=== PATIENT | male | born 1995 | race African-American/Black ===

== ENCOUNTER 2021-08-17 11:25 | Emergency (ER) | payer OTHER ==
[2021-08-17 11:55] VITALS: BP 142/73; PULSE 78; TEMP 98.1; BMI 23.7
[2021-08-17] MEDS ORDERED: METOCLOPRAMIDE HCL INJECTION 10 MG/2 ML VIAL IVPB ONE (12:41)
[2021-08-17] MEDS ORDERED: ACETAMINOPHEN 1000 MG/100 ML VIAL IVPB ONE (12:41)
[2021-08-17] MEDS ORDERED: SODIUM CHLORIDE 1,000 ML IV STA ×2 (12:41→18:29)
[2021-08-17] MEDS ORDERED: MAG HYDROX/AL HYDROX/SIMETH 30 ML UNIT-DOSE CUP PO ONE (12:42)
[2021-08-17] MEDS ORDERED: ACETAMINOPHEN INJECTION 100 ML IVPB ONE (13:19)
[2021-08-17] MEDS ORDERED: METOCLOPRAMIDE HCL INJECTION 10 MG/2 ML VIAL ONE (13:19)
[2021-08-17] MEDS ORDERED: MAG HYDROX/AL HYDROX/SIMETH 30 ML UNIT-DOSE CUP ONE (13:20)
[2021-08-17] MEDS ORDERED: LORazepam 2 MG/ML SDV VIAL IVPUSH ONE (14:23)
[2021-08-17 14:26] LABS: BASO % 0.3 % (0-2.0); HEMATOCRIT 46.3 % (35.4-49); HEMOGLOBIN 15.6 GM/dL (11.7-16.9); LYMPH % 7.4 % (8-40); MCH 26.8 pg (25.7-33.7); MCHC 33.8 g/dl (32.0-35.9); MEAN CELL VOLUME 79.4 fl (80-96); MEAN PLT VOLUME 8.8 fl (7.5-11.1); MONO % 5.5 % (3.8-10.2); NEUT % 86.8 % (42.8-82.8); PLATELET COUNT 298 10^3/uL (134-434); RBC 5.84 M/mm3 (4.00-5.60); RDW 13.5 % (11.9-15.9); WHITE BLOOD COUNT 18.5 K/mm3 (4.0-10.0)
[2021-08-17 14:33] LABS: INR 1.12 (0.83-1.09); PROTHROMBIN TIME (PATIENT) 13.1 SEC (9.7-13.0)
[2021-08-17] MEDS ORDERED: LORazepam 2 MG/ML SDV VIAL ONE (14:41)
[2021-08-17 14:45] LABS: CHLORIDE 108 mmol/L (98-107); SODIUM 140 mmol/L (136-145)
[2021-08-17 14:47] LABS: CALCIUM 9.6 mg/dL (8.5-10.1)
[2021-08-17 14:48] LABS: ALBUMIN 4.4 g/dl (3.4-5.0); ANION GAP 15 MMOL/L (8-16); BLOOD UREA NITROGEN 9.5 mg/dL (7-18); CO2 17 mmol/L (21-32); GLUCOSE,RANDOM 110 mg/dL (74-106); LIPASE 45 U/L (73-393)
[2021-08-17 14:51] LABS: CREATININE 1.3 mg/dL (0.55-1.3); SGOT/AST 29 U/L (15-37); SGPT/ALT 45 U/L (13-61)
[2021-08-17 14:52] LABS: BILIRUBIN,TOTAL 0.3 mg/dL (0.2-1); TOT PROT 8.4 g/dl (6.4-8.2)
[2021-08-17 14:53] LABS: ALK PHOS 84 U/L (45-117)
[2021-08-17] MEDS ORDERED: LIDOCAINE VISCOUS 2% ORAL/TOP 15 ML UNIT-DOSE CUP MM ONE (17:33)
[2021-08-17] MEDS ORDERED: KETOROLAC TROMETHAMINE 60 MG/2 ML VIAL IVPUSH ONE (17:43)
[2021-08-17] MEDS ORDERED: KETOROLAC TROMETHAMINE 15 MG/ML VIAL ONE (18:20)
[2021-08-17] MEDS ORDERED: LIDOCAINE VISCOUS 2% ORAL/TOP 15 ML UNIT-DOSE CUP ONE (18:20)
[2021-08-17] MEDS ORDERED: ONDANSETRON 4 MG/2 ML VIAL IVPUSH ONE (18:28)
[2021-08-17] MEDS ORDERED: ONDANSETRON 4 MG/2 ML VIAL ONE (19:14)
== END 2021-08-17 21:03 | disposition home or self-care (01) ==
LOC: JER 11:25
PROC: 3E0333Z Introduction of Anti-inflammatory into Peripheral Vein, Percutaneous Approach (ICD-10-PCS; principal; 2021-08-17)
PROC: 3E0333Z Introduction of Anti-inflammatory into Peripheral Vein, Percutaneous Approach (ICD-10-PCS; 2021-08-17)
PROC: 3E033GC Introduction of Other Therapeutic Substance into Peripheral Vein, Percutaneous Approach (ICD-10-PCS; 2021-08-17)
PROC: 3E033NZ Introduction of Analgesics, Hypnotics, Sedatives into Peripheral Vein, Percutaneous Approach (ICD-10-PCS; 2021-08-17)
PROC: 3E033GC Introduction of Other Therapeutic Substance into Peripheral Vein, Percutaneous Approach (ICD-10-PCS; 2021-08-17)
PROC: 3E033GC Introduction of Other Therapeutic Substance into Peripheral Vein, Percutaneous Approach (ICD-10-PCS; 2021-08-17)
PROC: 3E0337Z Introduction of Electrolytic and Water Balance Substance into Peripheral Vein, Percutaneous Approach (ICD-10-PCS; 2021-08-17)
PROC: 3E0337Z Introduction of Electrolytic and Water Balance Substance into Peripheral Vein, Percutaneous Approach (ICD-10-PCS; 2021-08-17)
DX: R11.2 Nausea with vomiting, unspecified (principal)
CPT/HCPCS: 36415; 80053; 82550; 82553; 83690; 84484; 85025; 85610; 93005; 93010; 96361; 96374; 96375; 99284-25; J0131

== ENCOUNTER 2021-08-20 12:35 | Observation (INO) | payer OTHER ==
[2021-08-20] MEDS ORDERED: SODIUM CHLORIDE 1,000 ML IV STA ×2 (13:17→15:30)
[2021-08-20] MEDS ORDERED: LORazepam 2 MG/ML SDV VIAL IVPUSH ONE (13:50)
[2021-08-20] MEDS ORDERED: LORazepam 2 MG/ML SDV VIAL ONE (14:04)
[2021-08-20 14:22] LABS: BASO % 0.3 % (0-2.0); EOS % 0.2 % (0-4.5); HEMATOCRIT 42.8 % (35.4-49); HEMOGLOBIN 14.7 GM/dL (11.7-16.9); LYMPH % 18.9 % (8-40); MCH 27.3 pg (25.7-33.7); MCHC 34.4 g/dl (32.0-35.9); MEAN CELL VOLUME 79.2 fl (80-96); MEAN PLT VOLUME 8.6 fl (7.5-11.1); MONO % 9.6 % (3.8-10.2); PLATELET COUNT 255 10^3/uL (134-434); RDW 13.7 % (11.9-15.9); WHITE BLOOD COUNT 18.2 K/mm3 (4.0-10.0)
[2021-08-20] MEDS ORDERED: ACETAMINOPHEN 1000 MG/100 ML VIAL IVPB ONE (14:28)
[2021-08-20] MEDS ORDERED: FAMOTIDINE 20 MG/50 ML IVPB 20 MG/50 ML MG IVPB ONE ×2 (14:28→15:39)
[2021-08-20 14:50] LABS: ALBUMIN 3.8 g/dl (3.4-5.0)
[2021-08-20 14:51] LABS: BLOOD UREA NITROGEN 6.9 mg/dL (7-18); MAGNESIUM 2.3 mg/dL (1.8-2.4)
[2021-08-20 14:54] LABS: CREATININE 0.9 mg/dL (0.55-1.3)
[2021-08-20 14:55] LABS: BILIRUBIN,TOTAL 0.7 mg/dL (0.2-1); TOT PROT 7.2 g/dl (6.4-8.2)
[2021-08-20] MEDS ORDERED: POTASSIUM CHLORIDE ORAL LIQUID 20 MEQ/15 ML PO ONE (15:14)
[2021-08-20] MEDS ORDERED: POTASSIUM CHLORIDE ORAL LIQUID 20 MEQ/15 ML ONE (15:39)
[2021-08-20] MEDS ORDERED: ACETAMINOPHEN INJECTION 100 ML IVPB ONE (15:39)
[2021-08-20 15:52] LABS: PH,URINE >= 9.0 (5.0-8.0); URINE APPEARANCE CLOUDY; URINE BILIRUBIN NEGATIVE (NEGATIVE); URINE COLOR YELLOW; URINE GLUCOSE (UA) NEGATIVE (NEGATIVE); URINE KETONE NEGATIVE (NEGATIVE); URINE LEUK ESTERASE NEGATIVE (NEGATIVE); URINE NITRITE NEGATIVE (NEGATIVE); URINE PROTEIN TRACE (NEGATIVE); URINE UROBILINOGEN 0.2 mg/dL (0.2-1.0)
[2021-08-20 16:10] LABS: URINE BARBITURATES NEGATIVE (NEGATIVE); URINE BENZODIAZEPINES NEGATIVE (NEGATIVE)
[2021-08-20 16:11] LABS: OPIATES, URI NEGATIVE (NEGATIVE)
[2021-08-20 16:14] LABS: PHENCYCLIDINE,URINE NEGATIVE (NEGATIVE)
[2021-08-20 16:18] LABS: COCAINE, UR NEGATIVE (NEGATIVE); METHADONE, UR NEGATIVE (NEGATIVE); URINE AMPHETAMINES NEGATIVE (NEGATIVE)
[2021-08-20] MEDS ORDERED: IBUPROFEN 400 MG TABLET (FP) PO PRN (20:23)
[2021-08-20] MEDS ORDERED: IBUPROFEN 400 MG TABLET (FP) PO ONE (20:27)
[2021-08-20 20:29] LABS: CHLORIDE 106 mmol/L (98-107); SODIUM 136 mmol/L (136-145)
[2021-08-20 20:32] LABS: ANION GAP 9 MMOL/L (8-16); CALCIUM 8.9 mg/dL (8.5-10.1); CO2 20 mmol/L (21-32); GLUCOSE,RANDOM 97 mg/dL (74-106)
[2021-08-20 20:33] LABS: MAGNESIUM 2.3 mg/dL (1.8-2.4)
[2021-08-20] MEDS ORDERED: KCL 10 MEQ IVPB 10 MEQ/100 ML INFUS.BAG IVPB ONE ×2 (20:36→22:05)
[2021-08-20] MEDS ORDERED: CEFTRIAXONE 1 GM in DEXTROSE 5%-WATER - 50 ML IVPB ONE (21:15)
[2021-08-20] MEDS: KCL 10 MEQ IVPB 10 MEQ/100 ML INFUS.BAG IVPB SCH ×2 (21:21→22:18)
[2021-08-20] MEDS ORDERED: CEFTRIAXONE 1 GM/50 ML BAG ONE (22:05)
[2021-08-20] MEDS: LACTATED RINGERS SOLUTION 1,000 ML/1,000 ML INFUS.BAG IV SCH (22:18)
[2021-08-20] MEDS: METOCLOPRAMIDE HCL INJECTION 10 MG/2 ML VIAL IVPUSH PRN (22:54)
[2021-08-20] MEDS ORDERED: METOCLOPRAMIDE HCL INJECTION 10 MG/2 ML VIAL ONE (22:55)
[2021-08-21] MEDS ORDERED: ONDANSETRON 4 MG/2 ML VIAL IVPUSH ONE (05:32)
[2021-08-21] MEDS ORDERED: ONDANSETRON 4 MG/2 ML VIAL ONE (05:44)
[2021-08-21] MEDS ORDERED: morphine SULFATE 4 MG/ML VIAL IVPUSH ONE (06:34)
[2021-08-21] MEDS ORDERED: MAGNESIUM SULF 50% (8.12 MEQ/2 ML-1 GM VIAL) IVPB ONE ×2 (06:35)
[2021-08-21] MEDS ORDERED: morphine SULFATE 4 MG/ML VIAL ONE (06:35)
[2021-08-21] MEDS ORDERED: MAGNESIUM SULFATE IN WATER 2 GM/50 ML IVPB IVPB ONE (06:35)
[2021-08-21] MEDS ORDERED: MAGNESIUM 2GM/50ML STERILE WATER IVPB IVPB ONE (06:35)
[2021-08-21 07:40] LABS: HEMATOCRIT 44.6 % (35.4-49); MCH 26.9 pg (25.7-33.7); MCHC 33.6 g/dl (32.0-35.9); MEAN PLT VOLUME 8.7 fl (7.5-11.1); PLATELET COUNT 251 10^3/uL (134-434); RBC 5.57 M/mm3 (4.00-5.60); WHITE BLOOD COUNT 12.5 K/mm3 (4.0-10.0)
[2021-08-21 07:57] LABS: CHLORIDE 105 mmol/L (98-107); SODIUM 137 mmol/L (136-145)
[2021-08-21 08:02] LABS: ANION GAP 9 MMOL/L (8-16); BLOOD UREA NITROGEN 7.9 mg/dL (7-18); CALCIUM 9.1 mg/dL (8.5-10.1); CO2 23 mmol/L (21-32); IRON SERUM 85 ug/dL (50-175); TOTAL IRON BINDING CAPACITY 244 ug/dL (250-450)
[2021-08-21 08:03] LABS: GLUCOSE,RANDOM 103 mg/dL (74-106)
[2021-08-21 08:05] LABS: SGOT/AST 30 U/L (15-37); SGPT/ALT 34 U/L (13-61)
[2021-08-21 08:06] LABS: BILIRUBIN,TOTAL 0.8 mg/dL (0.2-1); TOT PROT 7.3 g/dl (6.4-8.2)
[2021-08-21 08:08] LABS: ALK PHOS 76 U/L (45-117)
[2021-08-21 08:31] LABS: PHOSPHOROUS 1.2 mg/dL (2.5-4.9)
[2021-08-21 08:46] LABS: MAGNESIUM 3.6 mg/dL (1.8-2.4)
[2021-08-21] MEDS ORDERED: PANTOPRAZOLE 40 MG TABLET PO SCH (10:00)
[2021-08-21] MEDS ORDERED: ENOXAPARIN NA (PORCINE) 40 MG/0.4 ML DISP.SYRIN SQ SCH (10:00)
[2021-08-21] MEDS ORDERED: METOCLOPRAMIDE HCL INJECTION 10 MG/2 ML VIAL ONE ×2 (10:22→16:54)
[2021-08-21] MEDS: METOCLOPRAMIDE HCL INJECTION 10 MG/2 ML VIAL IVPUSH PRN ×3 (10:27→23:58)
[2021-08-21 18:19] VITALS: BMI 18.8
[2021-08-21] MEDS ORDERED: MELATONIN 5 MG TABLETS PO ONE (20:42)
[2021-08-21] MEDS ORDERED: ONDANSETRON 4 MG TABLET PO ONE (20:43)
[2021-08-21] MEDS ORDERED: CEFTRIAXONE 1 GM in DEXTROSE 5%-WATER - 50 ML IVPB SCH (21:00)
[2021-08-21] MEDS: LACTATED RINGERS SOLUTION 1,000 ML/1,000 ML INFUS.BAG IV SCH (21:26)
[2021-08-22] MEDS: METOCLOPRAMIDE HCL INJECTION 10 MG/2 ML VIAL IVPUSH PRN ×2 (05:10→11:15)
[2021-08-22 07:26] LABS: HEMATOCRIT 46.5 % (35.4-49); HEMOGLOBIN 15.8 GM/dL (11.7-16.9); MCH 26.8 pg (25.7-33.7); MCHC 33.9 g/dl (32.0-35.9); MEAN CELL VOLUME 78.8 fl (80-96); MEAN PLT VOLUME 8.6 fl (7.5-11.1); PLATELET COUNT 241 10^3/uL (134-434); RDW 13.9 % (11.9-15.9); WHITE BLOOD COUNT 10.8 K/mm3 (4.0-10.0)
[2021-08-22 07:40] LABS: ALBUMIN 3.9 g/dl (3.4-5.0); BLOOD UREA NITROGEN 7.3 mg/dL (7-18); CALCIUM 8.7 mg/dL (8.5-10.1); MAGNESIUM 2.5 mg/dL (1.8-2.4)
[2021-08-22 07:43] LABS: PHOSPHOROUS 2.8 mg/dL (2.5-4.9)
[2021-08-22 07:45] LABS: BILIRUBIN,TOTAL 1.3 mg/dL (0.2-1); TOT PROT 7.2 g/dl (6.4-8.2)
[2021-08-22] MEDS ORDERED: PANTOPRAZOLE SODIUM 40 MG VIAL IVPUSH SCH (10:00)
[2021-08-22 14:40] VITALS: BP 130/81; PULSE 95; TEMP 98.5
== END 2021-08-22 16:52 | disposition home or self-care (01) ==
LOC: JER 12:35 → INTOOBSV 18:34 → JERBED 18:34 → J4W 08-21 17:53
PROC: 3E03329 Introduction of Other Anti-infective into Peripheral Vein, Percutaneous Approach (ICD-10-PCS; principal; 2021-08-20)
PROC: 3E033NZ Introduction of Analgesics, Hypnotics, Sedatives into Peripheral Vein, Percutaneous Approach (ICD-10-PCS; 2021-08-20)
PROC: 3E0337Z Introduction of Electrolytic and Water Balance Substance into Peripheral Vein, Percutaneous Approach (ICD-10-PCS; 2021-08-20)
PROC: 3E033GC Introduction of Other Therapeutic Substance into Peripheral Vein, Percutaneous Approach (ICD-10-PCS; 2021-08-20)
DX: F12.90 Cannabis use, unspecified, uncomplicated (principal); R11.2 Nausea with vomiting, unspecified; R50.9 Fever, unspecified; R06.02 Shortness of breath; R56.9 Unspecified convulsions; F41.9 Anxiety disorder, unspecified; J45.909 Unspecified asthma, uncomplicated; D72.829 Elevated white blood cell count, unspecified; E87.6 Hypokalemia; R10.84 Generalized abdominal pain; R19.7 Diarrhea, unspecified; F17.210 Nicotine dependence, cigarettes, uncomplicated
CPT/HCPCS: 36415; 71045-TC-FY; 74177-TC; 76700-TC; 80048; 80053; 80307; 81003; 82550; 82553; 83540; 83550; 83690; 83735; 84100; 84443; 84484; 85025; 85027; 85651; 86140; 87040; 93005; 93010; 93306-TC; 96365; 96366; 96367; 96375; 99285-25; C9803; G0378; J0131; Q9967; U0003; U0005

== ENCOUNTER 2022-02-03 01:47 | Emergency (ER) | payer OTHER ==
[2022-02-03 02:03] VITALS: BP 128/72; PULSE 98; BMI 24.3
[2022-02-03] MEDS ORDERED: ONDANSETRON 4 MG/2 ML VIAL IVPUSH ONE (02:28)
[2022-02-03] MEDS ORDERED: ACETAMINOPHEN 1000 MG/100 ML BAG IVPB ONE (02:29)
[2022-02-03] MEDS ORDERED: FAMOTIDINE 20 MG/50 ML IVPB 20 MG/50 ML MG IVPB ONE (02:29)
[2022-02-03] MEDS ORDERED: ONDANSETRON 4 MG/2 ML VIAL ONE (02:34)
[2022-02-03] MEDS ORDERED: FAMOTIDINE 10 MG/ML VIAL IVPB ONE (02:34)
[2022-02-03] MEDS ORDERED: ACETAMINOPHEN INJECTION 100 ML IVPB ONE (02:34)
[2022-02-03 02:46] LABS: BASO % 0.9 % (0-2.0); EOS % 0.1 % (0-4.5); HEMATOCRIT 47.7 % (35.4-49); LYMPH % 8.1 % (8-40); MCH 26.7 pg (25.7-33.7); MCHC 33.5 g/dl (32.0-35.9); MEAN CELL VOLUME 79.7 fl (80-96); MEAN PLT VOLUME 8.5 fl (7.5-11.1); MONO % 5.1 % (3.8-10.2); NEUT % 85.8 % (42.8-82.8); PLATELET COUNT 268 10^3/uL (134-434); RBC 5.99 M/mm3 (4.00-5.60); RDW 14.1 % (11.9-15.9); WHITE BLOOD COUNT 18.3 K/mm3 (4.0-10.0)
[2022-02-03 03:08] LABS: ALBUMIN 4.7 g/dl (3.4-5.0); BLOOD UREA NITROGEN 9.4 mg/dL (7-18); CALCIUM 9.6 mg/dL (8.5-10.1); MAGNESIUM 1.8 mg/dL (1.8-2.4)
[2022-02-03 03:11] LABS: CREATININE 1.1 mg/dL (0.55-1.3)
[2022-02-03 03:12] LABS: BILIRUBIN,TOTAL 0.6 mg/dL (0.2-1)
[2022-02-03 03:13] LABS: TOT PROT 7.9 g/dl (6.4-8.2)
[2022-02-03] MEDS ORDERED: KETOROLAC TROMETHAMINE 15 MG/ML VIAL IVPUSH ONE (03:34)
[2022-02-03] MEDS ORDERED: KETOROLAC TROMETHAMINE 15 MG/ML VIAL ONE (03:36)
[2022-02-04 23:11] LABS: SARS-CoV-2 NAA Not Detected (Not Detected)
== END 2022-02-03 05:37 | disposition left against medical advice (07) ==
LOC: JER 01:47
PROC: 3E0333Z Introduction of Anti-inflammatory into Peripheral Vein, Percutaneous Approach (ICD-10-PCS; principal; 2022-02-03)
PROC: 3E033GC Introduction of Other Therapeutic Substance into Peripheral Vein, Percutaneous Approach (ICD-10-PCS; 2022-02-03)
PROC: 3E0333Z Introduction of Anti-inflammatory into Peripheral Vein, Percutaneous Approach (ICD-10-PCS; 2022-02-03)
PROC: 3E033GC Introduction of Other Therapeutic Substance into Peripheral Vein, Percutaneous Approach (ICD-10-PCS; 2022-02-03)
DX: K52.9 Noninfective gastroenteritis and colitis, unspecified (principal)
CPT/HCPCS: 36415; 80053; 82550; 82553; 83690; 83735; 85025; 87804; 96374; 96375; 99284-25; C9803-CS; U0003; U0005

== ENCOUNTER 2022-02-03 23:59 | Inpatient (IN) | payer OTHER ==
[2022-02-04] MEDS ORDERED: SODIUM CHLORIDE 0.9% 500 ML INFUS.BAG IV ONE ×2 (01:01→04:01)
[2022-02-04] MEDS ORDERED: FAMOTIDINE 20 MG/50 ML IVPB 20 MG/50 ML MG IVPB ONE (01:02)
[2022-02-04] MEDS ORDERED: ONDANSETRON 4 MG/2 ML VIAL IVPUSH ONE (01:02)
[2022-02-04] MEDS ORDERED: MAG HYDROX/AL HYDROX/SIMETH 30 ML UNIT-DOSE CUP PO ONE (01:02)
[2022-02-04] MEDS ORDERED: ACETAMINOPHEN 1000 MG/100 ML BAG IVPB ONE (01:03)
[2022-02-04 01:26] LABS: BASO % 1.3 % (0-2.0); HEMATOCRIT 45.8 % (35.4-49); HEMOGLOBIN 15.8 GM/dL (11.7-16.9); LYMPH % 12.1 % (8-40); MCH 26.9 pg (25.7-33.7); MCHC 34.6 g/dl (32.0-35.9); MEAN CELL VOLUME 77.7 fl (80-96); MONO % 8.2 % (3.8-10.2); NEUT % 78.4 % (42.8-82.8); PLATELET COUNT 249 10^3/uL (134-434); RDW 13.7 % (11.9-15.9); WHITE BLOOD COUNT 13.5 K/mm3 (4.0-10.0)
[2022-02-04] MEDS ORDERED: ACETAMINOPHEN INJECTION 100 ML IVPB ONE (01:39)
[2022-02-04] MEDS ORDERED: MAG HYDROX/AL HYDROX/SIMETH 30 ML UNIT-DOSE CUP ONE (01:39)
[2022-02-04] MEDS ORDERED: ONDANSETRON 4 MG/2 ML VIAL ONE (01:39)
[2022-02-04] MEDS ORDERED: FAMOTIDINE 10 MG/ML VIAL IVPB ONE (01:40)
[2022-02-04 01:48] LABS: CALCIUM 9.8 mg/dL (8.5-10.1)
[2022-02-04 01:49] LABS: ALBUMIN 4.6 g/dl (3.4-5.0)
[2022-02-04 01:52] LABS: CREATININE 1.1 mg/dL (0.55-1.3)
[2022-02-04 01:53] LABS: BILIRUBIN,TOTAL 0.9 mg/dL (0.2-1); TOT PROT 7.8 g/dl (6.4-8.2)
[2022-02-04] MEDS ORDERED: LORazepam 2 MG/ML SDV VIAL IVPUSH ONE (04:01)
[2022-02-04] MEDS ORDERED: MAG HYDROX/AL HYDROX/SIMETH 30 ML UNIT-DOSE CUP PO PRN (04:36)
[2022-02-04] MEDS ORDERED: PROCHLORPERAZINE INJECTION 10 MG/2 ML VIAL IM PRN (04:38)
[2022-02-04] MEDS ORDERED: KCL 10 MEQ IVPB 10 MEQ/100 ML INFUS.BAG IVPB ONE ×2 (04:38→05:53)
[2022-02-04] MEDS ORDERED: ACETAMINOPHEN 1000 MG/100 ML BAG IVPB PRN (04:44)
[2022-02-04] MEDS: KCL 10 MEQ IVPB 10 MEQ/100 ML INFUS.BAG IVPB SCH ×2 (05:03→06:31)
[2022-02-04 05:47] LABS: METHADONE, UR NEGATIVE (NEGATIVE); PHENCYCLIDINE,URINE NEGATIVE (NEGATIVE); URINE BARBITURATES NEGATIVE (NEGATIVE)
[2022-02-04 05:48] LABS: COCAINE, UR NEGATIVE (NEGATIVE); OPIATES, URI NEGATIVE (NEGATIVE); URINE BENZODIAZEPINES NEGATIVE (NEGATIVE)
[2022-02-04 06:19] LABS: URINE AMPHETAMINES NEGATIVE (NEGATIVE)
[2022-02-04] MEDS: SODIUM CHLORIDE 1,000 ML IV SCH ×2 (06:39→11:01)
[2022-02-04 06:51] LABS: BASO % 0.2 % (0-2.0); EOS % 0.1 % (0-4.5); HEMATOCRIT 41.6 % (35.4-49); HEMOGLOBIN 14.3 GM/dL (11.7-16.9); LYMPH % 13.1 % (8-40); MCH 26.9 pg (25.7-33.7); MCHC 34.4 g/dl (32.0-35.9); MEAN CELL VOLUME 78.1 fl (80-96); MEAN PLT VOLUME 8.4 fl (7.5-11.1); MONO % 11.2 % (3.8-10.2); NEUT % 75.4 % (42.8-82.8); PLATELET COUNT 228 10^3/uL (134-434); RBC 5.33 M/mm3 (4.00-5.60); RDW 13.6 % (11.9-15.9); WHITE BLOOD COUNT 11.5 K/mm3 (4.0-10.0)
[2022-02-04 07:34] LABS: ALBUMIN 3.8 g/dl (3.4-5.0); MAGNESIUM 2.2 mg/dL (1.8-2.4)
[2022-02-04 07:35] LABS: BLOOD UREA NITROGEN 10.9 mg/dL (7-18)
[2022-02-04 07:37] LABS: PHOSPHOROUS 3.2 mg/dL (2.5-4.9)
[2022-02-04 07:38] LABS: BILIRUBIN,TOTAL 0.8 mg/dL (0.2-1); CHOLESTEROL 216 mg/dL (50-200); TRIGLYCERIDES 63 mg/dL (0-150)
[2022-02-04 07:39] LABS: LDL CHOLESTEROL (ONLY SJRH) 157 mg/dL (5-100); TOT PROT 6.4 g/dl (6.4-8.2)
[2022-02-04 07:41] LABS: HDL CHOLESTEROL 49 mg/dL (40-60)
[2022-02-04 07:48] LABS: CALCIUM 8.2 mg/dL (8.5-10.1)
[2022-02-04 08:00] VITALS: BMI 22.6
[2022-02-04] MEDS ORDERED: FOLIC ACID INJECTION - 1 MG, THIAMINE HCL 100 MG, MULTIVIT INJECTION ADULT 10 ML in SOD... IVPB ONE (09:32)
[2022-02-04] MEDS ORDERED: PANTOPRAZOLE SODIUM 40 MG in SODIUM CHLORIDE 100 ML IVPB SCH (10:00)
[2022-02-04] MEDS ORDERED: LORazepam 2 MG/ML SDV VIAL IVPB ONE (10:41)
[2022-02-04] MEDS: PANTOPRAZOLE SODIUM 40 MG VIAL IVPUSH SCH (11:02)
[2022-02-04] MEDS: ENOXAPARIN NA (PORCINE) 40 MG/0.4 ML DISP.SYRIN SQ SCH (11:07)
[2022-02-04] MEDS ORDERED: LORazepam 2 MG/ML SDV VIAL IVPB PRN ×2 (11:12→12:43)
[2022-02-04 18:35] LABS: EPI CELLS 19 /uL (0-25.1); HYALINE CASTS 3 /uL (0-3.1); URINE APPEARANCE CLEAR; URINE BACTERIA 1 /uL (0-1359); URINE BILIRUBIN NEGATIVE (NEGATIVE); URINE COLOR YELLOW; URINE GLUCOSE (UA) TRACE (NEGATIVE); URINE KETONE 1+ (NEGATIVE); URINE LEUK ESTERASE NEGATIVE (NEGATIVE); URINE NITRITE NEGATIVE (NEGATIVE); URINE PROTEIN 2+ (NEGATIVE); URINE RBC 7 /uL (0-23.9); URINE UROBILINOGEN 0.2 mg/dL (0.2-1.0); URINE WBC 36 /uL (0-25.8)
[2022-02-05] MEDS: SODIUM CHLORIDE 1,000 ML IV SCH ×2 (07:52→11:15)
[2022-02-05 08:53] LABS: BASO % 0.5 % (0-2.0); EOS % 0.5 % (0-4.5); HEMATOCRIT 38.8 % (35.4-49); HEMOGLOBIN 13.1 GM/dL (11.7-16.9); MCH 26.6 pg (25.7-33.7); MCHC 33.6 g/dl (32.0-35.9); MONO % 10.8 % (3.8-10.2); NEUT % 59.2 % (42.8-82.8); PLATELET COUNT 205 10^3/uL (134-434); RBC 4.92 M/mm3 (4.00-5.60)
[2022-02-05 09:15] LABS: ALBUMIN 3.4 g/dl (3.4-5.0); BLOOD UREA NITROGEN 8.2 mg/dL (7-18); CALCIUM 7.9 mg/dL (8.5-10.1); MAGNESIUM 2.3 mg/dL (1.8-2.4)
[2022-02-05 09:18] LABS: CREATININE 0.8 mg/dL (0.55-1.3)
[2022-02-05 09:20] LABS: TOT PROT 5.7 g/dl (6.4-8.2)
[2022-02-05] MEDS: ENOXAPARIN NA (PORCINE) 40 MG/0.4 ML DISP.SYRIN SQ SCH (11:11)
[2022-02-05] MEDS: PANTOPRAZOLE SODIUM 40 MG VIAL IVPUSH SCH (11:15)
[2022-02-05 15:32] VITALS: BP 121/72; PULSE 64; TEMP 98.5
== END 2022-02-05 16:43 | disposition home or self-care (01) | DRG 776 ==
LOC: JER 23:59 → JERBED 02-04 03:50 → J5S 02-04 07:39
PROVIDERS: ADMIT Hospitalist; ATTEND Nurse Practitioner Family
DX: F12.929 Cannabis use, unspecified with intoxication, unspecified (principal); I10 Essential (primary) hypertension; E78.5 Hyperlipidemia, unspecified; R74.8 Abnormal levels of other serum enzymes; D72.829 Elevated white blood cell count, unspecified; R00.1 Bradycardia, unspecified; R07.89 Other chest pain; R11.2 Nausea with vomiting, unspecified; N28.1 Cyst of kidney, acquired; R10.84 Generalized abdominal pain; K52.9 Noninfective gastroenteritis and colitis, unspecified; Z72.89 Other problems related to lifestyle
CPT/HCPCS: 36415; 71045-TC-FY; 74177-TC; 80053; 80061; 80307; 81003; 82550; 82553; 83605; 83690; 83735; 84100; 84110; 84484; 85025; 87040; 87086; 93005; 93010; 93225; 93226; 93306-TC; 93351; 99285-25; C9803-CS; Q9967; U0003; U0005

== ENCOUNTER 2022-06-16 09:19 | Emergency (ER) | payer OTHER ==
[2022-06-16 09:54] VITALS: BP 141/89; PULSE 67; RESP 18; TEMP 98.1; BMI 22.0
[2022-06-16] MEDS ORDERED: MAG HYDROX/AL HYDROX/SIMETH -MYLANTA- ORAL SUSPENSION PO ONE (10:50)
[2022-06-16] MEDS ORDERED: FAMOTIDINE 20 MG TABLET PO ONE (10:50)
[2022-06-16] MEDS ORDERED: ONDANSETRON *ODT* 4 MG TABLET SL ONE (10:50)
[2022-06-16] MEDS ORDERED: FAMOTIDINE 20 MG TABLET ONE (11:00)
[2022-06-16] MEDS ORDERED: MAG HYDROX/AL HYDROX/SIMETH 30 ML UNIT-DOSE CUP ONE ×2 (11:00→11:50)
[2022-06-16] MEDS ORDERED: ONDANSETRON *ODT* 4 MG TABLET ONE (11:00)
== END 2022-06-16 13:25 | disposition home or self-care (01) ==
LOC: JER 09:19
PROC: 3E023NZ Introduction of Analgesics, Hypnotics, Sedatives into Muscle, Percutaneous Approach (ICD-10-PCS; principal; 2022-06-16)
DX: F12.188 Cannabis abuse with other cannabis-induced disorder (principal); R11.2 Nausea with vomiting, unspecified
CPT/HCPCS: 0241U-QW; 96372; 99283-25; Q0162

== ENCOUNTER 2022-06-17 03:49 | Emergency (ER) | payer OTHER ==
[2022-06-17 04:09] VITALS: RESP 15; BMI 22.8
[2022-06-17] MEDS ORDERED: SODIUM CHLORIDE 0.9% 500 ML INFUS.BAG IV ONE (04:47)
[2022-06-17] MEDS ORDERED: ACETAMINOPHEN 1000 MG/100 ML BAG IVPB ONE (04:52)
[2022-06-17] MEDS ORDERED: ONDANSETRON 4 MG/2 ML VIAL IVPUSH ONE (04:56)
[2022-06-17] MEDS ORDERED: FAMOTIDINE 20 MG/50 ML IVPB 20 MG/50 ML MG IVPB ONE ×2 (04:56→05:22)
[2022-06-17] MEDS ORDERED: HALOPERIDOL LACTATE 5 MG/ML IM ONE (05:14)
[2022-06-17] MEDS ORDERED: HALOPERIDOL LACTATE 5 MG/ML ONE (05:22)
[2022-06-17] MEDS ORDERED: ACETAMINOPHEN INJECTION 100 ML IVPB ONE (05:22)
[2022-06-17 05:52] LABS: BASO % 0.6 % (0-2.0); HEMATOCRIT 47.2 % (35.4-49); HEMOGLOBIN 15.7 GM/dL (11.7-16.9); LYMPH % 10.4 % (8-40); MCH 26.2 pg (25.7-33.7); MCHC 33.3 g/dl (32.0-35.9); MEAN CELL VOLUME 78.9 fl (80-96); MEAN PLT VOLUME 8.6 fl (7.5-11.1); MONO % 5.9 % (3.8-10.2); NEUT % 83.1 % (42.8-82.8); PLATELET COUNT 286 10^3/uL (134-434); RBC 5.98 M/mm3 (4.00-5.60); RDW 14.1 % (11.9-15.9); WHITE BLOOD COUNT 15.9 K/mm3 (4.0-10.0)
[2022-06-17 06:13] LABS: ALBUMIN 4.6 g/dl (3.4-5.0); BLOOD UREA NITROGEN 8.4 mg/dL (7-18); CALCIUM 10.1 mg/dL (8.5-10.1)
[2022-06-17 06:16] VITALS: BP 113/69; PULSE 61; TEMP 98.9
[2022-06-17 06:16] LABS: CREATININE 0.9 mg/dL (0.55-1.3)
[2022-06-17 06:18] LABS: BILIRUBIN,TOTAL 0.6 mg/dL (0.2-1); TOT PROT 8.2 g/dl (6.4-8.2)
== END 2022-06-17 07:55 | disposition home or self-care (01) ==
LOC: JER 03:49
PROC: 3E0333Z Introduction of Anti-inflammatory into Peripheral Vein, Percutaneous Approach (ICD-10-PCS; principal; 2022-06-17)
PROC: 3E033GC Introduction of Other Therapeutic Substance into Peripheral Vein, Percutaneous Approach (ICD-10-PCS; 2022-06-17)
PROC: 3E023GC Introduction of Other Therapeutic Substance into Muscle, Percutaneous Approach (ICD-10-PCS; 2022-06-17)
DX: R11.2 Nausea with vomiting, unspecified (principal)
CPT/HCPCS: 36415; 80053; 83690; 85025; 93005; 93010; 96372; 96374; 96375; 99284-25

== ENCOUNTER 2023-02-06 18:58 | Observation (INO) | payer OTHER ==
[2023-02-06 19:11] VITALS: BMI 22.8
[2023-02-06] MEDS ORDERED: LORazepam 2 MG/ML SDV VIAL IVPUSH ONE (19:11)
[2023-02-06] MEDS ORDERED: HALOPERIDOL LACTATE 5 MG/ML IM ONE ×2 (19:45→19:47)
[2023-02-06 20:10] LABS: BASO % 0.5 % (0-2.0); EOS % 0.3 % (0-4.5); HEMATOCRIT 41.6 % (35.4-49); HEMOGLOBIN 14.1 GM/dL (11.7-16.9); LYMPH % 15.1 % (8-40); MCH 26.9 pg (25.7-33.7); MCHC 33.9 g/dl (32.0-35.9); MEAN CELL VOLUME 79.4 fl (80-96); MEAN PLT VOLUME 8.4 fl (7.5-11.1); MONO % 5.9 % (3.8-10.2); NEUT % 78.2 % (42.8-82.8); PLATELET COUNT 229 10^3/uL (134-434); RBC 5.23 M/mm3 (4.00-5.60); RDW 14.7 % (11.9-15.9); WHITE BLOOD COUNT 13.3 K/mm3 (4.0-10.0)
[2023-02-06 20:21] LABS: INR 1.14 (0.83-1.09); PROTHROMBIN TIME (PATIENT) 13.2 SEC (9.7-13.0)
[2023-02-06 20:23] LABS: ACTIVATED PTT 30.6 SECONDS (25.2-36.5)
[2023-02-06] MEDS ORDERED: LACTATED RINGERS SOLUTION 1000 ML INFUS.BAG IV ONE (20:28)
[2023-02-06 20:33] LABS: ALBUMIN 4.1 g/dl (3.4-5.0); BLOOD UREA NITROGEN 9.8 mg/dL (7-18); CALCIUM 9.1 mg/dL (8.5-10.1); MAGNESIUM 1.7 mg/dL (1.8-2.4)
[2023-02-06 20:38] LABS: BILIRUBIN,TOTAL 0.5 mg/dL (0.2-1); TOT PROT 7.1 g/dl (6.4-8.2)
[2023-02-06 20:47] LABS: LACTIC ACID 2.6 mmol/L (0.4-2.0)
[2023-02-06] MEDS ORDERED: FAMOTIDINE 20 MG/50 ML IVPB 20 MG/50 ML MG IVPB ONE (21:13)
[2023-02-06] MEDS ORDERED: MAGNESIUM 1GM/D5W - 1 GM/100 ML IVPB IVPB ONE (21:25)
[2023-02-06] MEDS ORDERED: FAMOTIDINE 10 MG/ML VIAL IVPB ONE (21:26)
[2023-02-06 23:05] LABS: LACTIC ACID 2.3 mmol/L (0.4-2.0)
[2023-02-07] MEDS ORDERED: ONDANSETRON 4 MG/2 ML VIAL IVPUSH PRN (04:29)
[2023-02-07] MEDS ORDERED: ACETAMINOPHEN 325 MG TABLET (FP) PO PRN (04:29)
[2023-02-07] MEDS ORDERED: D5-NS + 20 MEQ KCL - 20 MEQ/1,000 ML INFUS.BAG IV SCH (04:45)
[2023-02-07 06:37] VITALS: RESP 18
[2023-02-07 06:39] LABS: BASO % 0.4 % (0-2.0); HEMATOCRIT 43.3 % (35.4-49); LYMPH % 9.9 % (8-40); MCH 27.4 pg (25.7-33.7); MCHC 34.6 g/dl (32.0-35.9); MEAN CELL VOLUME 79.2 fl (80-96); MONO % 2.7 % (3.8-10.2); PLATELET COUNT 236 10^3/uL (134-434); RBC 5.46 M/mm3 (4.00-5.60); RDW 14.4 % (11.9-15.9); WHITE BLOOD COUNT 11.5 K/mm3 (4.0-10.0)
[2023-02-07 07:00] LABS: CALCIUM 9.4 mg/dL (8.5-10.1)
[2023-02-07 07:01] LABS: BLOOD UREA NITROGEN 5.4 mg/dL (7-18)
[2023-02-07 07:04] LABS: CREATININE 0.9 mg/dL (0.55-1.3)
[2023-02-07] MEDS ORDERED: FAMOTIDINE 20 MG/50 ML IVPB 20 MG/50 ML MG IVPB ONE (08:00)
[2023-02-07 15:18] VITALS: BP 116/79; PULSE 61; TEMP 97.5
[2023-02-07 15:26] LABS: URINE APPEARANCE CLEAR; URINE BILIRUBIN NEGATIVE (NEGATIVE); URINE COLOR YELLOW; URINE GLUCOSE (UA) NEGATIVE (NEGATIVE); URINE KETONE 3+ (NEGATIVE); URINE LEUK ESTERASE NEGATIVE (NEGATIVE); URINE NITRITE NEGATIVE (NEGATIVE); URINE PROTEIN TRACE (NEGATIVE); URINE UROBILINOGEN 0.2 mg/dL (0.2-1.0)
[2023-02-07 15:33] LABS: METHADONE, UR NEGATIVE (NEGATIVE); OPIATES, URI NEGATIVE (NEGATIVE); PHENCYCLIDINE,URINE NEGATIVE (NEGATIVE)
[2023-02-07 15:34] LABS: COCAINE, UR NEGATIVE (NEGATIVE)
[2023-02-07 15:35] LABS: URINE AMPHETAMINES NEGATIVE (NEGATIVE); URINE BARBITURATES NEGATIVE (NEGATIVE); URINE BENZODIAZEPINES NEGATIVE (NEGATIVE)
== END 2023-02-07 17:04 | disposition left against medical advice (07) ==
LOC: JER 18:58 → JERBED 02-07 00:35 → J5S 02-07 06:56
PROVIDERS: ADMIT Student in an Organized Health Care Education/Training Program; ATTEND Family Medicine
PROC: 3E033GC Introduction of Other Therapeutic Substance into Peripheral Vein, Percutaneous Approach (ICD-10-PCS; principal; 2023-02-07)
PROC: 3E023GC Introduction of Other Therapeutic Substance into Muscle, Percutaneous Approach (ICD-10-PCS; 2023-02-07)
PROC: 3E0333Z Introduction of Anti-inflammatory into Peripheral Vein, Percutaneous Approach (ICD-10-PCS; 2023-02-07)
DX: F12.188 Cannabis abuse with other cannabis-induced disorder (principal); R11.2 Nausea with vomiting, unspecified; R25.1 Tremor, unspecified; R41.82 Altered mental status, unspecified; D72.829 Elevated white blood cell count, unspecified
CPT/HCPCS: 0241U-QW; 36415; 70450-TC; 71045-TC-FY; 74177-TC; 80048; 80053; 80307; 81003; 82962; 83605; 83690; 83735; 84484; 85025; 85610; 85730; 87040; 87086; 87491; 87591; 93005; 93010; 96365; 96367; 96368; 96372; 99285-25; G0378; Q9967

== ENCOUNTER 2023-04-09 13:22 | Emergency (ER) | payer OTHER ==
[2023-04-09 13:35] VITALS: RESP 22; BMI 22.8
[2023-04-09 14:28] LABS: BASO % 0.2 % (0-2.0); HEMATOCRIT 44.3 % (35.4-49); HEMOGLOBIN 14.6 GM/dL (11.7-16.9); LYMPH % 13.1 % (8-40); MCH 26.3 pg (25.7-33.7); MCHC 32.9 g/dl (32.0-35.9); MEAN CELL VOLUME 79.9 fl (80-96); MEAN PLT VOLUME 9.2 fl (7.5-11.1); MONO % 6.7 % (3.8-10.2); PLATELET COUNT 272 10^3/uL (134-434); RBC 5.54 M/mm3 (4.00-5.60); RDW 14.3 % (11.9-15.9); WHITE BLOOD COUNT 13.6 K/mm3 (4.0-10.0)
[2023-04-09 14:47] LABS: POTASSIUM 3.8 mmol/L (3.5-5.1)
[2023-04-09 14:49] LABS: CALCIUM 9.6 mg/dL (8.5-10.1)
[2023-04-09 14:50] LABS: ALBUMIN 4.2 g/dl (3.4-5.0); BLOOD UREA NITROGEN 5.8 mg/dL (7-18)
[2023-04-09 14:54] LABS: BILIRUBIN,TOTAL 0.8 mg/dL (0.2-1)
[2023-04-09 14:55] LABS: TOT PROT 7.4 g/dl (6.4-8.2)
[2023-04-09] MEDS ORDERED: ONDANSETRON 4 MG/2 ML VIAL IVPUSH ONE ×2 (15:30)
[2023-04-09] MEDS ORDERED: ONDANSETRON 4 MG/2 ML VIAL ONE (15:49)
[2023-04-09] MEDS ORDERED: ACETAMINOPHEN 1000 MG/100 ML BAG IVPB ONE (16:09)
[2023-04-09] MEDS ORDERED: PANTOPRAZOLE SODIUM 40 MG VIAL IVPUSH ONE (16:09)
[2023-04-09] MEDS ORDERED: PANTOPRAZOLE SODIUM 40 MG VIAL ONE (16:14)
[2023-04-09] MEDS ORDERED: ACETAMINOPHEN INJECTION 100 ML IVPB ONE (16:16)
[2023-04-09 18:19] VITALS: BP 149/98; PULSE 71; TEMP 99
[2023-04-15 12:11] LABS: BENZODIAZEPINES, UR Negative ng/mL (Cutoff=200); CANNABINOID Positive (Cutoff=20); CANNABINOIDS, URINE See Final Results ng/mL (Cutoff=20); METHADONE, URINE Negative ng/mL (Cutoff=300); OPIATES, UR Negative ng/mL (Cutoff=300); PHENCYCLIDINE, URINE Negative ng/mL (Cutoff=25)
== END 2023-04-09 18:38 | disposition home or self-care (01) ==
LOC: JER 13:22
PROC: 3E033NZ Introduction of Analgesics, Hypnotics, Sedatives into Peripheral Vein, Percutaneous Approach (ICD-10-PCS; principal; 2023-04-09)
PROC: 3E033GC Introduction of Other Therapeutic Substance into Peripheral Vein, Percutaneous Approach (ICD-10-PCS; 2023-04-09)
PROC: 3E033GC Introduction of Other Therapeutic Substance into Peripheral Vein, Percutaneous Approach (ICD-10-PCS; 2023-04-09)
DX: R11.10 Vomiting, unspecified (principal); R53.1 Weakness; R25.1 Tremor, unspecified
CPT/HCPCS: 36415; 71046-TC-FY; 80053; 80307; 82962; 83605; 83690; 85025; 93005; 93010; 99285-25

== ENCOUNTER 2023-09-14 20:45 | Observation (INO) | payer OTHER ==
[2023-09-14 21:21] LABS: BASO % 0.7 % (0-2.0); HEMATOCRIT 47.5 % (35.4-49); HEMOGLOBIN 15.9 GM/dL (11.7-16.9); LYMPH % 7.6 % (8-40); MCH 26.9 pg (25.7-33.7); MCHC 33.4 g/dl (32.0-35.9); MEAN CELL VOLUME 80.4 fl (80-96); MEAN PLT VOLUME 8.5 fl (7.5-11.1); MONO % 6.8 % (3.8-10.2); NEUT % 84.9 % (42.8-82.8); PLATELET COUNT 291 10^3/uL (134-434); RBC 5.91 M/mm3 (4.00-5.60); RDW 14.5 % (11.9-15.9)
[2023-09-14 21:40] LABS: POTASSIUM 3.6 mmol/L (3.5-5.1)
[2023-09-14 21:42] LABS: ALBUMIN 4.6 g/dl (3.4-5.0); BLOOD UREA NITROGEN 10.4 mg/dL (7-18); CALCIUM 9.5 mg/dL (8.5-10.1)
[2023-09-14] MEDS ORDERED: SODIUM CHLORIDE 0.9% 500 ML INFUS.BAG IV ONE (21:43)
[2023-09-14] MEDS ORDERED: ONDANSETRON 4 MG/2 ML VIAL IVPUSH ONE (21:43)
[2023-09-14 21:45] LABS: CREATININE 1.2 mg/dL (0.55-1.3)
[2023-09-14 21:47] LABS: BILIRUBIN,TOTAL 0.6 mg/dL (0.2-1); TOT PROT 8.2 g/dl (6.4-8.2)
[2023-09-14] MEDS ORDERED: ONDANSETRON 4 MG/2 ML VIAL ONE (21:47)
[2023-09-14 22:59] LABS: LACTIC ACID 3.4 mmol/L (0.4-2.0)
[2023-09-15] MEDS ORDERED: ACETAMINOPHEN 1000 MG/100 ML BAG IVPB PRN (01:32)
[2023-09-15] MEDS: SODIUM CHLORIDE 1,000 ML IV SCH ×2 (02:36→12:08)
[2023-09-15 03:18] LABS: EPI CELLS 10 /uL (0-25.1); HYALINE CASTS 2 /uL (0-3.1); PH,URINE 7.5 (5.0-8.0); URINE APPEARANCE CLEAR; URINE BACTERIA 9 /uL (0-1359); URINE BILIRUBIN NEGATIVE (NEGATIVE); URINE COLOR YELLOW; URINE GLUCOSE (UA) NEGATIVE (NEGATIVE); URINE KETONE 3+ (NEGATIVE); URINE LEUK ESTERASE TRACE (NEGATIVE); URINE NITRITE NEGATIVE (NEGATIVE); URINE PROTEIN TRACE (NEGATIVE); URINE RBC 16 /uL (0-23.9); URINE UROBILINOGEN 0.2 mg/dL (0.2-1.0); URINE WBC 44 /uL (0-25.8)
[2023-09-15 03:54] VITALS: BMI 21.9
[2023-09-15 04:29] VITALS: RESP 18
[2023-09-15 05:49] LABS: BASO % 0.8 % (0-2.0); HEMOGLOBIN 14.2 GM/dL (11.7-16.9); LYMPH % 8.2 % (8-40); MCH 26.9 pg (25.7-33.7); MEAN CELL VOLUME 81.6 fl (80-96); MEAN PLT VOLUME 8.7 fl (7.5-11.1); MONO % 3.2 % (3.8-10.2); NEUT % 87.8 % (42.8-82.8); PLATELET COUNT 264 10^3/uL (134-434); RBC 5.27 M/mm3 (4.00-5.60); RDW 14.1 % (11.9-15.9); WHITE BLOOD COUNT 15.6 K/mm3 (4.0-10.0)
[2023-09-15 06:16] LABS: POTASSIUM 3.8 mmol/L (3.5-5.1)
[2023-09-15 06:18] LABS: CALCIUM 8.8 mg/dL (8.5-10.1); MAGNESIUM 1.8 mg/dL (1.8-2.4)
[2023-09-15 06:19] LABS: BLOOD UREA NITROGEN 8.6 mg/dL (7-18)
[2023-09-15 06:22] LABS: CREATININE 0.9 mg/dL (0.55-1.3); PHOSPHOROUS 2.5 mg/dL (2.5-4.9)
[2023-09-15] MEDS: levETIRAcetam 500 MG/5 ML INJECTION VIAL IVPB SCH ×2 (12:09→21:59)
[2023-09-15] MEDS: PANTOPRAZOLE SODIUM 40 MG VIAL IVPUSH SCH (16:50)
[2023-09-15 19:58] VITALS: PULSE 78; TEMP 98
[2023-09-15] MEDS ORDERED: ONDANSETRON 4 MG/2 ML VIAL IVPUSH PRN (20:33)
[2023-09-15] MEDS ORDERED: DEXTROSE 5%-0.45% SALINE 1,000 ML IV SCH (20:45)
[2023-09-16] MEDS ORDERED: ACETAMINOPHEN 325 MG TABLET (FP) PO PRN (01:30)
[2023-09-16 04:31] VITALS: BP 106/73
[2023-09-16] MEDS: PANTOPRAZOLE SODIUM 40 MG VIAL IVPUSH SCH (09:39)
[2023-09-16] MEDS: levETIRAcetam 500 MG/5 ML INJECTION VIAL IVPB SCH (09:39)
[2023-09-16 09:55] LABS: BASO % 0.6 % (0-2.0); EOS % 0.4 % (0-4.5); HEMOGLOBIN 15.5 GM/dL (11.7-16.9); LYMPH % 28.6 % (8-40); MCH 26.6 pg (25.7-33.7); MCHC 32.3 g/dl (32.0-35.9); MEAN CELL VOLUME 82.2 fl (80-96); MEAN PLT VOLUME 9.1 fl (7.5-11.1); MONO % 10.4 % (3.8-10.2); PLATELET COUNT 278 10^3/uL (134-434); RBC 5.84 M/mm3 (4.00-5.60); RDW 14.5 % (11.9-15.9); WHITE BLOOD COUNT 10.7 K/mm3 (4.0-10.0)
[2023-09-16 10:10] LABS: POTASSIUM 3.5 mmol/L (3.5-5.1)
[2023-09-16 10:19] LABS: ALBUMIN 4.2 g/dl (3.4-5.0); CALCIUM 8.9 mg/dL (8.5-10.1)
[2023-09-16 10:23] LABS: TOT PROT 7.6 g/dl (6.4-8.2)
[2023-09-16] MEDS ORDERED: levETIRAcetam 500 MG TABLET (FP) PO SCH (12:30)
== END 2023-09-16 10:41 | disposition left against medical advice (07) ==
LOC: JER 20:45 → JERBED 23:09 → J6S 09-15 03:11
PROVIDERS: ADMIT Internal Medicine; ATTEND Internal Medicine
PROC: 3E033NZ Introduction of Analgesics, Hypnotics, Sedatives into Peripheral Vein, Percutaneous Approach (ICD-10-PCS; principal; 2023-09-14)
PROC: 3E0337Z Introduction of Electrolytic and Water Balance Substance into Peripheral Vein, Percutaneous Approach (ICD-10-PCS; 2023-09-14)
DX: R56.9 Unspecified convulsions (principal); R11.2 Nausea with vomiting, unspecified; K21.9 Gastro-esophageal reflux disease without esophagitis; F12.90 Cannabis use, unspecified, uncomplicated; K25.9 Gastric ulcer, unspecified as acute or chronic, without hemorrhage or perforation; J45.909 Unspecified asthma, uncomplicated; R11.10 Vomiting, unspecified; N28.1 Cyst of kidney, acquired; D72.829 Elevated white blood cell count, unspecified; K29.70 Gastritis, unspecified, without bleeding; Z90.89 Acquired absence of other organs; Z90.49 Acquired absence of other specified parts of digestive tract
CPT/HCPCS: 36415; 70450-TC; 71045-TC-FY; 80048; 80053; 81003; 83605; 83735; 84100; 85025; 87086; 93005; 93010; 96361; 96374; 96375; 96376; 99285-25; G0378

== ENCOUNTER 2023-10-17 15:59 | Inpatient (IN) | payer OTHER ==
[2023-10-17] MEDS ORDERED: SODIUM CHLORIDE 1,000 ML IV STA (17:16)
[2023-10-17] MEDS ORDERED: HALOPERIDOL LACTATE 5 MG/ML ONE (17:42)
[2023-10-17] MEDS ORDERED: MIDAZOLAM HCL 2 MG/2 ML SINGLE DOSE VIAL IVPUSH ONE (17:48)
[2023-10-17] MEDS ORDERED: MIDAZOLAM HCL 2 MG/2 ML SINGLE DOSE VIAL ONE (18:03)
[2023-10-17] MEDS: HALOPERIDOL LACTATE 5 MG/ML IM PRN (18:03)
[2023-10-17 18:15] LABS: BASO % 1.2 % (0-2.0); EOS % 0.1 % (0-4.5); HEMOGLOBIN 15.2 GM/dL (11.7-16.9); LYMPH % 14.2 % (8-40); MCH 27.2 pg (25.7-33.7); MCHC 33.8 g/dl (32.0-35.9); MEAN CELL VOLUME 80.6 fl (80-96); MEAN PLT VOLUME 8.4 fl (7.5-11.1); MONO % 10.9 % (3.8-10.2); NEUT % 73.6 % (42.8-82.8); PLATELET COUNT 236 10^3/uL (134-434); RBC 5.58 M/mm3 (4.00-5.60); RDW 14.2 % (11.9-15.9); WHITE BLOOD COUNT 14.6 K/mm3 (4.0-10.0)
[2023-10-17 19:28] LABS: POTASSIUM 3.3 mmol/L (3.5-5.1)
[2023-10-17 19:29] LABS: ALBUMIN 4.4 g/dl (3.4-5.0); CALCIUM 9.5 mg/dL (8.5-10.1)
[2023-10-17 19:30] LABS: BLOOD UREA NITROGEN 7.7 mg/dL (7-18)
[2023-10-17 19:35] LABS: BILIRUBIN,TOTAL 1.1 mg/dL (0.2-1); TOT PROT 7.6 g/dl (6.4-8.2)
[2023-10-17] MEDS ORDERED: ONDANSETRON 4 MG/2 ML VIAL IVPUSH ONE (23:19)
[2023-10-17] MEDS ORDERED: ONDANSETRON 4 MG/2 ML VIAL ONE (23:28)
[2023-10-18] MEDS ORDERED: ACETAMINOPHEN 325 MG TABLET (FP) PO PRN (01:28)
[2023-10-18] MEDS ORDERED: ONDANSETRON 4 MG/2 ML VIAL IVPUSH PRN (01:28)
[2023-10-18] MEDS ORDERED: HALOPERIDOL LACTATE 5 MG/ML ONE (03:12)
[2023-10-18] MEDS ORDERED: ONDANSETRON 4 MG/2 ML VIAL ONE (03:12)
[2023-10-18] MEDS: HALOPERIDOL LACTATE 5 MG/ML IM PRN (03:18)
[2023-10-18 04:39] VITALS: BMI 20.1
[2023-10-18 09:35] VITALS: RESP 18
[2023-10-18] MEDS ORDERED: levETIRAcetam 500 MG/5 ML INJECTION VIAL IVPB ONE ×2 (11:01→11:02)
[2023-10-19 11:10] VITALS: BP 110/54; PULSE 70; TEMP 97.4
[2023-10-19 11:10] LABS: POTASSIUM 3.6 mmol/L (3.5-5.1)
[2023-10-19 11:11] LABS: BASO % 0.6 % (0-2.0); EOS % 0.2 % (0-4.5); HEMATOCRIT 44.7 % (35.4-49); HEMOGLOBIN 15.1 GM/dL (11.7-16.9); LYMPH % 27.5 % (8-40); MCH 27.1 pg (25.7-33.7); MCHC 33.9 g/dl (32.0-35.9); MONO % 11.7 % (3.8-10.2); PLATELET COUNT 255 10^3/uL (134-434); RBC 5.58 M/mm3 (4.00-5.60); RDW 13.9 % (11.9-15.9); WHITE BLOOD COUNT 10.4 K/mm3 (4.0-10.0)
[2023-10-19 11:13] LABS: CALCIUM 9.7 mg/dL (8.5-10.1)
[2023-10-19 11:15] LABS: ALBUMIN 4.2 g/dl (3.4-5.0); BLOOD UREA NITROGEN 10.8 mg/dL (7-18); MAGNESIUM 1.9 mg/dL (1.8-2.4)
[2023-10-19 11:19] LABS: BILIRUBIN,TOTAL 1.6 mg/dL (0.2-1); TOT PROT 7.5 g/dl (6.4-8.2)
== END 2023-10-19 10:05 | disposition left against medical advice (07) | DRG 53 ==
LOC: JER 15:59 → JERBED 23:41 → J6S 10-18 03:41 → OBSVTOIN 10-18 14:09
PROVIDERS: ADMIT Internal Medicine; ATTEND Internal Medicine
DX: R56.9 Unspecified convulsions (principal); J45.909 Unspecified asthma, uncomplicated; F12.90 Cannabis use, unspecified, uncomplicated; N28.1 Cyst of kidney, acquired; K21.9 Gastro-esophageal reflux disease without esophagitis; R11.2 Nausea with vomiting, unspecified
CPT/HCPCS: 0241U-QW; 36415; 80048; 80053; 80307; 82962; 83605; 83735; 85025; 93005; 93010; 99285-25; G0378

== ENCOUNTER 2023-10-19 19:40 | Emergency (ER) | payer OTHER ==
[2023-10-19] MEDS ORDERED: MIDAZOLAM HCL 2 MG/2 ML SINGLE DOSE VIAL ONE (19:49)
[2023-10-19] MEDS ORDERED: HALOPERIDOL LACTATE 5 MG/ML ONE (19:49)
[2023-10-19] MEDS: MIDAZOLAM HCL 2 MG/2 ML SINGLE DOSE VIAL IVPUSH ONE (20:08)
[2023-10-19] MEDS: HALOPERIDOL LACTATE 5 MG/ML IM ONE (20:08)
[2023-10-19 20:22] VITALS: BP 127/81; PULSE 70; RESP 18; TEMP 98.2; BMI 23.4
[2023-10-19 20:26] LABS: HEMOGLOBIN 15.5 GM/dL (11.7-16.9); MCH 26.9 pg (25.7-33.7); MCHC 33.6 g/dl (32.0-35.9); MEAN CELL VOLUME 80.1 fl (80-96); MEAN PLT VOLUME 8.3 fl (7.5-11.1); PLATELET COUNT 241 10^3/uL (134-434); RBC 5.75 M/mm3 (4.00-5.60); RDW 14.3 % (11.9-15.9); WHITE BLOOD COUNT 11.5 K/mm3 (4.0-10.0)
[2023-10-19 20:50] LABS: POTASSIUM 3.1 mmol/L (3.5-5.1)
[2023-10-19 20:52] LABS: CALCIUM 9.3 mg/dL (8.5-10.1)
[2023-10-19 20:53] LABS: ALBUMIN 4.3 g/dl (3.4-5.0); BLOOD UREA NITROGEN 13.4 mg/dL (7-18)
[2023-10-19 20:56] LABS: CREATININE 1.1 mg/dL (0.55-1.3)
[2023-10-19 20:58] LABS: BILIRUBIN,TOTAL 1.8 mg/dL (0.2-1); TOT PROT 7.5 g/dl (6.4-8.2)
[2023-10-19] MEDS: METOCLOPRAMIDE HCL INJECTION 10 MG/2 ML VIAL IVPUSH ONE (21:22)
[2023-10-19] MEDS ORDERED: METOCLOPRAMIDE HCL INJECTION 10 MG/2 ML VIAL ONE (21:23)
[2023-10-19] MEDS: KCL 10 MEQ IVPB 10 MEQ/100 ML INFUS.BAG IVPB SCH (21:31)
== END 2023-10-19 22:16 | disposition left against medical advice (07) ==
LOC: JER 19:40
PROC: 3E033GC Introduction of Other Therapeutic Substance into Peripheral Vein, Percutaneous Approach (ICD-10-PCS; principal; 2023-10-19)
PROC: 3E033GC Introduction of Other Therapeutic Substance into Peripheral Vein, Percutaneous Approach (ICD-10-PCS; 2023-10-19)
PROC: 3E033GC Introduction of Other Therapeutic Substance into Peripheral Vein, Percutaneous Approach (ICD-10-PCS; 2023-10-19)
PROC: 3E033GC Introduction of Other Therapeutic Substance into Peripheral Vein, Percutaneous Approach (ICD-10-PCS; 2023-10-19)
PROC: 3E023GC Introduction of Other Therapeutic Substance into Muscle, Percutaneous Approach (ICD-10-PCS; 2023-10-19)
DX: G40.209 Localization-related (focal) (partial) symptomatic epilepsy and epileptic syndromes with complex partial seizures, not intractable, without status epilepticus (principal); R11.10 Vomiting, unspecified
CPT/HCPCS: 36415; 80053; 83690; 85027; 96365; 96366; 96372; 96375; 99284-25

== ENCOUNTER 2023-10-26 03:58 | Observation (INO) | payer OTHER ==
[2023-10-26] MEDS ORDERED: ONDANSETRON 4 MG/2 ML VIAL IVPUSH ONE (04:49)
[2023-10-26] MEDS ORDERED: ONDANSETRON 4 MG/2 ML VIAL ONE (04:49)
[2023-10-26] MEDS ORDERED: HALOPERIDOL LACTATE 5 MG/ML IVPUSH ONE (05:15)
[2023-10-26 05:20] LABS: INR 1.06 (0.83-1.09); PROTHROMBIN TIME (PATIENT) 12.3 SEC (9.7-13.0)
[2023-10-26] MEDS ORDERED: HALOPERIDOL LACTATE 5 MG/ML ONE (05:22)
[2023-10-26 05:23] LABS: ACTIVATED PTT 29.7 SECONDS (25.2-36.5)
[2023-10-26 06:01] LABS: EOS % 0.4 % (0-4.5); HEMATOCRIT 44.9 % (35.4-49); HEMOGLOBIN 14.9 GM/dL (11.7-16.9); LYMPH % 19.8 % (8-40); MCH 26.6 pg (25.7-33.7); MCHC 33.1 g/dl (32.0-35.9); MEAN CELL VOLUME 80.4 fl (80-96); MEAN PLT VOLUME 8.4 fl (7.5-11.1); MONO % 7.1 % (3.8-10.2); NEUT % 71.7 % (42.8-82.8); PLATELET COUNT 287 10^3/uL (134-434); RBC 5.59 M/mm3 (4.00-5.60); RDW 14.5 % (11.9-15.9); WHITE BLOOD COUNT 10.5 K/mm3 (4.0-10.0)
[2023-10-26 06:02] LABS: CHLORIDE 108 mmol/L (98-107); SODIUM 141 mmol/L (136-145)
[2023-10-26 06:04] LABS: CALCIUM 9.2 mg/dL (8.5-10.1)
[2023-10-26 06:05] LABS: ALBUMIN 4.1 g/dl (3.4-5.0); ANION GAP 10 mmol/L (4-13); BLOOD UREA NITROGEN 8.8 mg/dL (7-18); CO2 23 mmol/L (21-32); GLUCOSE,RANDOM 112 mg/dL (74-106)
[2023-10-26 06:08] LABS: SGOT/AST 18 U/L (15-37); SGPT/ALT 24 U/L (13-61)
[2023-10-26 06:09] LABS: BILIRUBIN,TOTAL 0.4 mg/dL (0.2-1)
[2023-10-26 06:10] LABS: TOT PROT 7.3 g/dl (6.4-8.2)
[2023-10-26 06:11] LABS: ALK PHOS 68 U/L (45-117)
[2023-10-26 12:53] LABS: EPI CELLS 9 /uL (0-25.1); HYALINE CASTS 0 /uL (0-3.1); PH,URINE >= 9.0 (5.0-8.0); URINE APPEARANCE CLEAR; URINE BACTERIA 4 /uL (0-1359); URINE BILIRUBIN NEGATIVE (NEGATIVE); URINE COLOR YELLOW; URINE GLUCOSE (UA) NEGATIVE (NEGATIVE); URINE KETONE 1+ (NEGATIVE); URINE LEUK ESTERASE NEGATIVE (NEGATIVE); URINE NITRITE NEGATIVE (NEGATIVE); URINE PROTEIN 1+ (NEGATIVE); URINE RBC 22 /uL (0-23.9); URINE UROBILINOGEN 0.2 mg/dL (0.2-1.0); URINE WBC 35 /uL (0-25.8)
[2023-10-26 12:56] LABS: METHADONE, UR NEGATIVE (NEGATIVE); OPIATES, URI NEGATIVE (NEGATIVE); PHENCYCLIDINE,URINE NEGATIVE (NEGATIVE); URINE AMPHETAMINES NEGATIVE (NEGATIVE)
[2023-10-26 12:58] LABS: URINE BARBITURATES NEGATIVE (NEGATIVE)
[2023-10-26 13:10] LABS: COCAINE, UR NEGATIVE (NEGATIVE); URINE BENZODIAZEPINES POSITIVE (NEGATIVE)
[2023-10-26 16:54] VITALS: BMI 22.0
[2023-10-26] MEDS ORDERED: ONDANSETRON 4 MG/2 ML VIAL IVPUSH PRN (18:24)
[2023-10-26] MEDS: lamoTRIgine 25 MG TABLET PO SCH (21:28)
[2023-10-27] MEDS: lamoTRIgine 25 MG TABLET PO SCH (09:17)
[2023-10-27 10:20] VITALS: BP 120/72; PULSE 92; RESP 18; TEMP 98.3
[2023-10-27 11:03] LABS: BASO % 1.2 % (0-2.0); EOS % 0.5 % (0-4.5); HEMATOCRIT 44.6 % (35.4-49); HEMOGLOBIN 14.9 GM/dL (11.7-16.9); LYMPH % 35.8 % (8-40); MCH 26.8 pg (25.7-33.7); MCHC 33.5 g/dl (32.0-35.9); MEAN CELL VOLUME 79.9 fl (80-96); MEAN PLT VOLUME 8.1 fl (7.5-11.1); MONO % 13.2 % (3.8-10.2); NEUT % 49.3 % (42.8-82.8); PLATELET COUNT 286 10^3/uL (134-434); RBC 5.58 M/mm3 (4.00-5.60); RDW 14.2 % (11.9-15.9); WHITE BLOOD COUNT 7.9 K/mm3 (4.0-10.0)
[2023-10-27 11:20] LABS: POTASSIUM 3.7 mmol/L (3.5-5.1)
[2023-10-27 11:22] LABS: BLOOD UREA NITROGEN 9.9 mg/dL (7-18)
[2023-10-27 11:35] LABS: CHLORIDE 103 mmol/L (98-107); POTASSIUM 3.7 mmol/L (3.5-5.1); SODIUM 134 mmol/L (136-145)
[2023-10-27 11:36] LABS: CALCIUM 9.1 mg/dL (8.5-10.1)
[2023-10-27 11:37] LABS: ALBUMIN 3.9 g/dl (3.4-5.0); ANION GAP 10 mmol/L (4-13); BLOOD UREA NITROGEN 10.3 mg/dL (7-18); CO2 21 mmol/L (21-32); GLUCOSE,RANDOM 88 mg/dL (74-106); MAGNESIUM 2.4 mg/dL (1.8-2.4)
[2023-10-27 11:40] LABS: SGOT/AST 20 U/L (15-37); SGPT/ALT 26 U/L (13-61)
[2023-10-27 11:42] LABS: BILIRUBIN,TOTAL 0.9 mg/dL (0.2-1); TOT PROT 7.2 g/dl (6.4-8.2)
[2023-10-27 11:43] LABS: ALK PHOS 72 U/L (45-117)
== END 2023-10-27 14:33 | disposition left against medical advice (07) ==
LOC: JER 03:58 → JERBED 08:09 → J5S 15:50
PROVIDERS: ADMIT Internal Medicine; ATTEND Internal Medicine
PROC: 3E033GC Introduction of Other Therapeutic Substance into Peripheral Vein, Percutaneous Approach (ICD-10-PCS; principal; 2023-10-26)
PROC: 3E033NZ Introduction of Analgesics, Hypnotics, Sedatives into Peripheral Vein, Percutaneous Approach (ICD-10-PCS; 2023-10-26)
PROC: 3E033GC Introduction of Other Therapeutic Substance into Peripheral Vein, Percutaneous Approach (ICD-10-PCS; 2023-10-26)
DX: F44.5 Conversion disorder with seizures or convulsions (principal); F12.90 Cannabis use, unspecified, uncomplicated; R25.1 Tremor, unspecified; J45.909 Unspecified asthma, uncomplicated; K21.9 Gastro-esophageal reflux disease without esophagitis; R11.10 Vomiting, unspecified; K25.9 Gastric ulcer, unspecified as acute or chronic, without hemorrhage or perforation; K52.9 Noninfective gastroenteritis and colitis, unspecified; N28.1 Cyst of kidney, acquired
CPT/HCPCS: 36415; 70450-TC; 71045-TC-FY; 80048; 80053; 80307; 81003; 82550; 82553; 83735; 84146; 84484; 85025; 85610; 85730; 86850; 86900; 86901; 87086; 93005; 93010; 96365; 96366; 96367; 96372; 96375; 99285-25; G0378